=== PATIENT | male | born 1940 | race Caucasian/White ===

== ENCOUNTER 2018-03-18 13:40 | Observation (INO) ==
--- NOTE | 2018-03-18 13:50 | Emergency Department Note ---
Disposition Clinical Impression: Transient global amnesia Hypertension Qualifiers: Hypertension type: unspecified Qualified Code(s): I10 - Essential (primary) hypertension Disposition: Home, Self-Care Condition: Good Instructions: Hypertension (ED) Reasons to Return/Additional Instructions: Please follow-up with her family doctor regarding her blood pressure. If it returns to normal at home, you may not benefit from any treatment of elevated blood pressure. Referrals: Judah Pierre MD [Primary Care Provider] - Time of Disposition: 20:58 General Adult HPI - General Stated complaint: Chest Pain Time Seen by Provider: 03/18/18 13:46 Source: patient, family, EMS Mode of arrival: EMS Limitations: altered mental status - History of Present Illness HPI Narrative: This is a 78-year-old male by EMS because his family came back to see him about 2 hours prior to arrival and found that he appeared confused and did not remember anything that had occurred during the morning. He has no complaints. - Related Data Allergies Allergy/AdvReac Type Severity Reaction Status Date / Time Penicillins [PCN] Allergy Unconscious Verified 03/18/18 13:50 All systems ED: reviewed and negative except as stated. Neurological: Reports: confusion Physical Exam - General Limitations: altered mental status General appearance: alert, in no apparent distress - Head Head exam: atraumatic, normocephalic, normal inspection - Eye Eye exam: Present: normal appearance, PERRL, EOMI. Absent: scleral icterus, conjunctival injection - Chest Chest inspection: Present: normal inspection, symmetric chest wall rise - Respiratory Respiratory exam: Present: normal lung sounds bilaterally - Cardiovascular Cardiovascular exam: Present: regular rate, normal rhythm, normal heart sounds - Abdominal Exam Abdominal exam: Present: soft, Non-Tender. Absent: tenderness, distention, guarding, rebound, rigidity - Extremities Exam Extremities exam: Present: normal inspection, full ROM, pedal edema (1+ bilateral pedal edema just above the malleoli). Absent: tenderness - Neurological Exam Neurological exam: Present: alert, oriented X3, CN II-XII intact, other (Strong and equal bilateral hand instructional design manager, strong and equal L5/S1, no arm or leg drift). Absent: motor sensory deficit - Expanded Neurological Exam Patient oriented to: Present: person, place. Absent: time Speech: Present: fluid speech Cranial nerves: EOM function (II, III, IV, ): Normal, facial sensation (V): Normal, facial palsy (VII): Normal, gag reflex (IX): Normal, spinal accessory function (XI): Normal, tongue deviation (XII): Normal Motor strength - LUE: 5/5 Motor strength - RUE: 5/5 Motor strength - LLE: 5/5 Motor strength - RLE: 5/5 Coma Scale Eye Opening: Spontaneous Coma Scale Motor Response: Obeys Commands Coma Scale Verbal Response: Confused Coma Scale Total: 14 - Psychiatric Psychiatric exam: Present: normal affect, normal mood - Skin Skin exam: Present: warm, dry, intact, normal color Course Course Narrative: This is a 78-year-old male with an and IHSS to concerning for stroke or another metabolic problem causing confusion. Vital Signs Temperature 98.7 F 03/18/18 13:44 Pulse Rate 91 03/18/18 13:44 Respiratory Rate 20 03/18/18 13:44 Blood Pressure 170/101 03/18/18 13:44 O2 Sat by Pulse Oximetry 96 03/18/18 13:44 Temperature 98.7 F 03/18/18 13:44 Pulse Rate 83 03/18/18 20:25 Respiratory Rate 16 03/18/18 19:41 Blood Pressure 175/93 03/18/18 20:25 O2 Sat by Pulse Oximetry 100 03/18/18 19:41 Oxygen Delivery Oxygen Delivery Room Air Medical Decision Making - MDM Narrative Medical decision making narrative: This is a 78-year-old male who appears to have transient global amnesia. Extensive discussion was made between the patient's family in the on-call social insurance specialist. I also discussed his admission with the daytime hospitalist, who responded that we should simply get an MRI of his brain to rule out a stroke because there would be no further benefit to her admitting him to the hospital. This appeared to be correct. I discussed his situation with the evening hospitalist after his MRI resulted in showed no acute process, and no evidence of stroke. The overnight hospitalist told me that he thought the slight troponin elevation could well be secondary to hypertension as was apparent on the patient's vital signs, and that if the repeat troponin was no more elevated, he should be discharged home and follow-up with his family doctor for hypertension treatment. His repeat troponin also returned at 0.04, and he will be discharged home. - Lab Data Lab results reviewed: Yes I reviewed the patient's lab results. Lab results narrative: CBC was unremarkable BMP was unremarkable Troponin was slightly elevated 0.04 UA was unremarkable Repeat troponin was also 0.04 Result diagrams: 03/18/18 14:21 03/18/18 14:21 Lab Results 03/18/18 03/18/18 03/18/18 Range/Units 13:45 14:21 14:21 WBC 7.3 (4.3-11.1) K/mcL RBC 4.29 (4.19-5.50) M/mcL Hgb 14.3 (12.9-16.9) g/dL Hct 41.7 (37.5-50.1) % MCV 97.2 (83.0-100.0) fL MCH 33.3 (28.0-33.3) pg MCHC 34.3 (31.6-35.5) g/dL RDW 11.9 (11.5-14.5) % Plt Count 190 (140-400) K/mcL MPV 9.3 L (9.4-12.4) fL Sodium 140 (136-145) mEq/L Potassium 4.3 (3.5-5.1) mEq/L Chloride 106 (98-107) mEq/L Carbon Dioxide 26 (23-29) mEq/L BUN 19 (8-23) mg/dL Creatinine 0.96 (0.70-1.30) mg/dL Est GFR ( Amer) > 60 (> 60) Est GFR (Non-Af Amer) > 60 (> 60) BUN/Creatinine Ratio 20 (6-26) Glucose 101 (70-105) mg/dL POC Glucose 108 H (70-99) mg/dL Calculated Osmolality 292 (280-300) Calcium 9.5 (8.6-10.3) mg/dL Troponin I 0.04 H* (< 0.04) ng/mL Urine Color (Yellow) Urine Clarity (Clear) Urine pH (5.0-8.0) pH Units Ur Specific [place] (1.010-1.025) Urine Protein (Neg-Trace) mg/dL Urine Glucose (UA) (Normal) mg/dL Urine Ketones (Negative) mg/dL Urine Blood (Negative) Urine Nitrite (Negative) Urine Bilirubin (Negative) Urine Urobilinogen (Normal) mg/dL Ur Leukocyte Esterase (Negative) Urine Microscopic RBC (0-3) per hpf Urine Microscopic WBC (0-3) per hpf Ur Squamous Epith Cells (None-Few) per lpf Urine Bacteria (None-Few) per hpf Hyaline Casts (None-Few) per lpf Ur Culture Indicated? (NO) 03/18/18 03/18/18 Range/Units 14:37 20:15 WBC (4.3-11.1) K/mcL RBC (4.19-5.50) M/mcL Hgb (12.9-16.9) g/dL Hct (37.5-50.1) % MCV (83.0-100.0) fL MCH (28.0-33.3) pg MCHC (31.6-35.5) g/dL RDW (11.5-14.5) % Plt Count (140-400) K/mcL MPV (9.4-12.4) fL Sodium (136-145) mEq/L Potassium (3.5-5.1) mEq/L Chloride (98-107) mEq/L Carbon Dioxide (23-29) mEq/L BUN (8-23) mg/dL Creatinine (0.70-1.30) mg/dL Est GFR ( Amer) (> 60) Est GFR (Non-Af Amer) (> 60) BUN/Creatinine Ratio (6-26) Glucose (70-105) mg/dL POC Glucose (70-99) mg/dL Calculated Osmolality (280-300) Calcium (8.6-10.3) mg/dL Troponin I 0.04 H* (< 0.04) ng/mL Urine Color Yellow (Yellow) Urine Clarity Clear (Clear) Urine pH 6.0 (5.0-8.0) pH Units Ur Specific [place] 1.028 H (1.010-1.025) Urine Protein Negative (Neg-Trace) mg/dL Urine Glucose (UA) Normal (Normal) mg/dL Urine Ketones Negative (Negative) mg/dL Urine Blood Small H (Negative) Urine Nitrite Negative (Negative) Urine Bilirubin Negative (Negative) Urine Urobilinogen Normal (Normal) mg/dL Ur Leukocyte Esterase Negative (Negative) Urine Microscopic RBC 0-3 (0-3) per hpf Urine Microscopic WBC 0-3 (0-3) per hpf Ur Squamous Epith Cells None Seen (None-Few) per lpf Urine Bacteria None Seen (None-Few) per hpf Hyaline Casts None Seen (None-Few) per lpf Ur Culture Indicated? NO (NO) - Radiology Data Radiology results reviewed: Yes I reviewed the patient's radiology results. CT brain showed no acute abnormalities except age-related change MRI brain showed no abnormality - EKG Data EKG #1 EKG attestation: Yes I reviewed and interpreted this EKG. 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
[2018-03-18 14:52] LABS: Hematocrit 41.7 % (37.5-50.1); Hemoglobin 14.3 g/dL (12.9-16.9); Mean Corpuscular HGB Conc 34.3 g/dL (31.6-35.5); Mean Corpuscular Hemoglobin 33.3 pg (28.0-33.3); Mean Corpuscular Volume 97.2 fL (83.0-100.0); Mean Platelet Volume 9.3 fL (9.4-12.4); Platelet Count 190 K/mcL (140-400); Red Blood Count 4.29 M/mcL (4.19-5.50); Red Cell Distribution Width 11.9 % (11.5-14.5)
[2018-03-18 14:53] LABS: Bilirubin,Urine Negative (Negative); Blood,Urine Small (Negative); Clarity,Urine Clear (Clear); Color,Urine Yellow (Yellow); Glucose,Urine (UA) Normal (Normal); Ketones,Urine Negative (Negative); Leukocyte Esterase,Urine Negative (Negative); Nitrite,Urine Negative (Negative); Protein,Urine Negative (Neg-Trace); Specific Gravity,Urine 1.028 (1.010-1.025); Urobilinogen,Urine Normal (Normal)
[2018-03-18 14:58] LABS: Bacteria,Urine None Seen per hpf (None-Few); Hyaline Casts,Urine None Seen per lpf (None-Few); RBC,Urine 0-3 per hpf (0-3); Squamous Epithelial Cell,Urine None Seen per lpf (None-Few); WBC,Urine 0-3 per hpf (0-3)
[2018-03-18 15:12] LABS: BUN/Creatinine Ratio 20 (6-26); Blood Urea Nitrogen 19 mg/dL (8-23); Calcium 9.5 mg/dL (8.6-10.3); Carbon Dioxide 26 mEq/L (23-29); Chloride 106 mEq/L (98-107); Glucose 101 mg/dL (70-105); Osmolality,Calculated 292 (280-300); Potassium 4.3 mEq/L (3.5-5.1); Sodium 140 mEq/L (136-145); eGFR For Non-African Americans > 60 (> 60)
[2018-03-18 15:17] LABS: Troponin I 0.04 ng/mL (< 0.04)
--- NOTE | 2018-03-18 21:37 | Emergency Department Note ---
START Narrative - START START: Initial plan was to discharge the patient. Patient's family was quite upset with the plan to discharge him home. They thought he was too confused to be safe. I discussed this further with social services aide, who recommended he be admitted as a social admit is there was no medical reason to admit him. I discussed the case again with the hospitalist, who agreed to admission.
[2018-03-18] MEDS ORDERED: Naloxone 0.4 MG/ML INJ IVP PRN (23:31)
[2018-03-18] MEDS ORDERED: 0.9 % Sodium Chloride 1,000 ML IVC SCH (23:45)
--- NOTE | 2018-03-19 04:55 | Internal Med History&Physical ---
Date of Encounter: 03/19/18 Time of Encounter: 04:00 Internal Medicine - H&P: HPI Chief complaint: Confusion History of present illness: Mr. Hinson is a 78 year old male with no significant past medical history who presents with confusion. Per family members patient was in his usual state of health earlier this morning. His states that she left the house to go run some errands and when she returned around noon, patient was confused as to recollection of immediate events. Apparently the patient had left the home and returned but could not recall where he had gone. also noted that he was having issues with short-term memory as he kept asking the same question over and over again despite being provided answers a few minutes prior. She states that this is an acute change from his baseline and he has no prior episodes like this before. Patient is not currently on any medication except for supplements including potassium and omega-3 fatty acids among others. He did have his blood pressure checked around this time and did noted to be elevated with a reported systolic blood pressure over 200. He states that his blood pressure normally runs around 110 to 115 systolic. Patient denies any fever, chills, chest pain, shortness of breath, nausea, vomiting, diarrhea. Due to concern for stroke, neurology was consulted and an MRI of the brain was performed which was unremarkable except for chronic small vessel ischemic white matter disease and diffuse cerebral volume loss. Laboratory workup in the ED was relatively unremarkable except for a mild elevation in troponin of 0.04. Neurology's assessment was that this may be due to global transient amnesia. Family did not feel comfortable taking the patient home as they felt he was still symptomatic. Past Med Surg Social Fam HX - Past Medical History Medical history: arthritis, other Additional medical history: left carotid blockage Psychiatric history: no psych history - Social History Smoking Status: Former smoker Alcohol use: none Drug use: none - Family History Mother History Unknown: Yes Hx Family Cardiac Disorders: No Hx Family Respiratory Disorders: No Hx Family Cancer: No Hx Family GI Disorders: No Hx Family Genitourinary Disorders: No Hx Family Endocrine Disorder: No Hx Family Musculoskeletal Disorders: No Father Hx Family Cardiac Disorders: No Hx Family Respiratory Disorders: No Hx Family Cancer: No Hx Family GI Disorders: No Hx Family Genitourinary Disorders: No Hx Family Endocrine Disorder: No Hx Family Musculoskeletal Disorders: No Hx Family Neuromuscular Disorders: No Hx Family Neurologic Disorders: No Hx Family HEENT Disorders: No Hx Family Autoimmune Disorders: No Hx Family Reproductive Disorders: No Hx Family Psychosocial Disorders: No Hx Family Medical Disorders: No Internal Medicine - H&P: Meds Bee Pollen 550 mg PO DAILY 03/18/18 [History] Cholecalciferol (D-3) [Vitamin D] 1,000 unit PO DAILY 03/18/18 [History] Garlic [Daily Garlic Once-A-Day] 400 mg PO DAILY 03/18/18 [History] Lysine [l-Lysine] 500 mg PO DAILY PRN 03/18/18 [History] Magnesium Oxide [Magnesium] 400 mg PO DAILY 03/18/18 [History] Eden-3/Dha/Epa/Fish Oil [Fish Oil 1,000 mg Softgel] 1 cap PO DAILY 03/18/18 [History] Potassium Gluconate [Potassium] 99 mg PO DAILY 03/18/18 [History] Turmeric Root Extract [Turmeric] 500 mg PO DAILY 03/18/18 [History] Allergy/AdvReac Type Severity Reaction Status Date / Time Penicillins [PCN] Allergy Unconscious Verified 03/18/18 13:50 All Systems PM: A 10-system review of systems was performed and is negative for pertinent findings except as documented above in the HPI. - Constitutional Constitutional: no chills, no fever(s), no night sweats - EENT Eyes: no change in vision, no discharge, no pain, no photophobia Ears: no ear discharge, no ear pain, no tinnitus Nose, mouth and throat: no dysphagia, no nasal discharge, no neck pain, no sore throat - Cardiovascular Cardiovascular ROS IM: no chest pain, no diaphoresis, no dyspnea, no lightheadedness, no palpitations, no syncope - Respiratory Respiratory: no cough, no dyspnea, no wheezing, no excessive phlegm production - Gastrointestinal Gastrointestinal: no abdominal pain, no diarrhea, no hematemesis, no hematochezia, no melena, no nausea, no vomiting - Musculoskeletal Musculoskeletal ROS IM: no numbness, no tingling - Integumentary Integumentary IM: no rash, no unusual bruising - Neurological Neurological ROS: no confusion, no convulsions, no focal weakness, no numbness, no tingling, no tremor(s) - Hematologic/Lymphatic Hematologic/Lymphatic: no easy bruising - Constitutional Vitals: Temp Pulse Resp BP Pulse Ox 99.0 F 73 16 173/82 94 03/19/18 00:00 03/19/18 00:00 03/19/18 00:00 03/19/18 00:00 03/19/18 00:00 Exam: General: Alert and oriented 3; lying in bed in no acute distress Skin:Normal color, no rash, no lesions. HEENT:EOM, pupils equal, round and reactive. Cardiovascular:Normal S1 & S2, no rubs, murmurs or gallops. No JVD. Pulse regular. Lungs:Normal breath sounds, no wheezes or crackles. Abdomen:Soft, non-tender, no rigidity. Extremities:No deformity, no edema or tenderness, no joint swelling or clubbing. Neurological:Normal cognition; cranial nerves II through XII intact; no focal deficits; muscle strength 5 out of 5 in the upper and lower extremities Pulses:Carotid and radial pulses normal +2. Rest of the physical exam is non contributory Internal Med - H&P Results - Labs CBC & Chem 7: 03/19/18 05:12 03/19/18 05:12 Labs: Short CBC 03/18/18 Range/Units 14:21 WBC 7.3 (4.3-11.1) K/mcL Hgb 14.3 (12.9-16.9) g/dL Hct 41.7 (37.5-50.1) % Plt Count 190 (140-400) K/mcL BMP 03/18/18 14:21 Sodium 140 Potassium 4.3 Chloride 106 Carbon Dioxide 26 BUN 19 Creatinine 0.96 Glucose 101 Calcium 9.5 Cardiac Enzymes 03/18/18 03/18/18 Range/Units 14:21 20:15 Troponin I 0.04 H* 0.04 H* (< 0.04) ng/mL Urine 03/18/18 Range/Units 14:37 Urine Color Yellow (Yellow) Urine Clarity Clear (Clear) Urine pH 6.0 (5.0-8.0) pH Units Ur Specific [place] 1.028 H (1.010-1.025) Urine Protein Negative (Neg-Trace) mg/dL Urine Glucose (UA) Normal (Normal) mg/dL - Impressions ITS Impressions Head CT 03/18/18 13:47 IMPRESSION: No acute intracranial abnormality. D/ / Ten Perez / Ten Perez Interpreting Provider: Ten Perez Brain MRI 03/18/18 16:09 IMPRESSION: 1. No acute infarct, intracranial hemorrhage, or significant mass effect. 2. Chronic small vessel ischemic white matter disease and diffuse cerebral volume loss. D/ / Anders Cardenas MD / Anders Cardenas MD Interpreting Provider: Anders Cardenas MD - Assessment and plan (1) Confusion Current Visit: Yes Status: Acute Assessment and plan: Acute change in mental status characterized by confusion and short-term memory loss. Patient seems to be returning to baseline. No neurological deficits were appreciated. MRI showed chronic small vessel ischemic changes in the absence of any acute findings concerning for stroke. No evidence at this time of any toxic, metabolic derangements or infectious etiology. Neurology's current as sessment of patient's presentation believed to be secondary to a transient global amnesia. Given patient's reported elevated blood pressure of over 200 systolic at home and elevated blood pressure here in the ED one might consider a hypertensive encephalopathy. We will obtain TSH, vitamin B12 level. We will hold antihypertensive medications for now as blood pressure seems to be trending towards normal. Neurology consult for the morning. (2) Hypertension Current Visit: Yes Status: Acute Assessment and plan: Patient has no prior history of hypertension and is not on any antihypertensive medications. Blood pressure was found to be elevated upon arrival and as high as 196/111. Patient reports that his blood pressure tends to run around 110 to 115 systolic. Blood pressure trending down. We will continue to monitor. Hold off treatment for now. Qualifiers: Hypertension type: unspecified Qualified Code(s): I10 - Essential (primary) hypertension (3) Elevated troponin Current Visit: Yes Status: Acute Assessment and plan: Mildly elevated troponin noted on initial workup. No reports of chest pain. EKG normal. Likely secondary to troponin leak in the setting of elevated blood pressure. We will continue to trend for now. (4) DVT prophylaxis Current Visit: Yes Status: Acute Assessment and plan: Subcutaneous heparin - Time Spent With Patient Total time spent is greater than 50% in coordination of care (as documented) at patient's floor/unit and/or counseling patient:
[2018-03-19 06:05] LABS: Basophils % 0.5 %; Eosinophils # 0.1 K/mcL (0.0-0.6); Eosinophils % 2.3 %; Hematocrit 38.4 % (37.5-50.1); Hemoglobin 13.4 g/dL (12.9-16.9); Immature Granulocytes % 0.4 % (0-4); Lymphocytes # 1.6 K/mcL (0.6-4.6); Lymphocytes % 28.3 %; Mean Corpuscular HGB Conc 34.9 g/dL (31.6-35.5); Mean Corpuscular Hemoglobin 33.3 pg (28.0-33.3); Mean Corpuscular Volume 95.5 fL (83.0-100.0); Mean Platelet Volume 9.5 fL (9.4-12.4); Monocytes # 0.4 K/mcL (0.0-1.3); Monocytes % 7.2 %; Neutrophils # 3.4 K/mcL (1.6-8.9); Platelet Count 181 K/mcL (140-400); Red Blood Count 4.02 M/mcL (4.19-5.50); Red Cell Distribution Width 11.9 % (11.5-14.5); Segmented Neutrophils % 61.3 %
[2018-03-19 06:18] LABS: Alanine Aminotransferase 23 Units/L (7-52); Albumin 4.1 g/dL (3.5-5.7); Albumin/Globulin Ratio 1.8 (1.1-2.2); Alkaline Phosphatase 49 Units/L (34-104); Aspartate Amino Transferase 23 Units/L (13-39); BUN/Creatinine Ratio 17 (6-26); Bilirubin,Total 0.6 mg/dL (0.3-1.0); Blood Urea Nitrogen 14 mg/dL (8-23); Calcium 9.2 mg/dL (8.6-10.3); Carbon Dioxide 24 mEq/L (23-29); Chloride 106 mEq/L (98-107); Chol/HDL Ratio 3.6 (0-4.9); Globulin 2.3 g/dL (2.4-3.5); Glucose 112 mg/dL (70-105); Osmolality,Calculated 287 (280-300); Potassium 3.9 mEq/L (3.5-5.1); Sodium 138 mEq/L (136-145); Total Protein 6.4 g/dL (6.4-8.9); eGFR For Non-African Americans > 60 (> 60)
[2018-03-19] MEDS ORDERED: Aspirin 325 MG TABLET PO ONE (07:30)
[2018-03-19] MEDS: [Fish Oil 1,000 Mg PO SCH (09:11)
[2018-03-19] MEDS: *HR* Heparin 5,000 UNIT/ML VIAL SQ SCH ×3 (09:12→21:44)
[2018-03-19] MEDS: POTASSIUM 99MG PO SCH (09:12)
[2018-03-19] MEDS: Magnesium Oxide 400 MG TABLET PO SCH (09:13)
[2018-03-19] MEDS: Cholecalciferol (D-3) 1,000 UNIT TABLET PO SCH (09:13)
--- NOTE | 2018-03-19 09:15 | Electrocardiograph Report ---
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
--- NOTE | 2018-03-19 11:19 | Neurology - Consult Note ---
<Misael Hernandez - Last Filed: 03/19/18 11:12> Date of Encounter: 03/19/18 Time of Encounter: 11:13 History of Present Illness Chief complaint: Altered mental status HPI: Mr. Hinson is a 78 year old male presents with chief complaint of altered mental status. Yesterday morning patient was at baseline and has no history of confusion, dementia. Patient's went to run errands and upon returning found that he was very confused. In the morning patient had gone to the cemetery as he is working on family [employer]. During the time upon returning h ome patient became confused. Family noticed that he could not answer at first what he did the morning of and Repeating the same questions over and over again. Patient has never had anything like this before. The patient's blood pressure at that time was measured as systolics of 200. Normally patient's blood pressure runs in the 110 systolics. At home patient does not take any medications but is on many supplements including turmeric, vitamin C, vitamin D, fish oil. Patient's head CT and brain MRI are negative. Patient denied blurry vision and headache, slurred speech, weakness, numbness, tingling. She is able to ambulate independently. Past Med Surg Social Fam HX - Past Medical History Medical history: arthritis, other Additional medical history: left carotid blockage Psychiatric history: no psych history - Social History Smoking Status: Former smoker Alcohol use: none Drug use: none - Family History Mother History Unknown: Yes Hx Family Cardiac Disorders: No Hx Family Respiratory Disorders: No Hx Family Cancer: No Hx Family GI Disorders: No Hx Family Genitourinary Disorders: No Hx Family Endocrine Disorder: No Hx Family Musculoskeletal Disorders: No Father Hx Family Cardiac Disorders: No Hx Family Respiratory Disorders: No Hx Family Cancer: No Hx Family GI Disorders: No Hx Family Genitourinary Disorders: No Hx Family Endocrine Disorder: No Hx Family Musculoskeletal Disorders: No Hx Family Neuromuscular Disorders: No Hx Family Neurologic Disorders: No Hx Family HEENT Disorders: No Hx Family Autoimmune Disorders: No Hx Family Reproductive Disorders: No Hx Family Psychosocial Disorders: No Hx Family Medical Disorders: No Medications and Allergies Bee Pollen 550 mg PO DAILY 03/18/18 [History] Cholecalciferol (D-3) [Vitamin D] 1,000 unit PO DAILY 03/18/18 [History] Garlic [Daily Garlic Once-A-Day] 400 mg PO DAILY 03/18/18 [History] Lysine [l-Lysine] 500 mg PO DAILY PRN 03/18/18 [History] Magnesium Oxide [Magnesium] 400 mg PO DAILY 03/18/18 [History] [place]-3/Dha/Epa/Fish Oil [Fish Oil 1,000 mg Softgel] 1 cap PO DAILY 03/18/18 [History] Potassium Gluconate [Potassium] 99 mg PO DAILY 03/18/18 [History] Turmeric Root Extract [Turmeric] 500 mg PO DAILY 03/18/18 [History] Allergy/AdvReac Type Severity Reaction Status Date / Time Penicillins [PCN] Allergy Unconscious Verified 03/18/18 13:50 All Systems: The remainder of the systems were reviewed and are negative Review of Systems: Constitutional: Denies fever, chills HEENT: Denies headache, trauma, blurry vision, eye discharge, ear pain, ear discharge neck pain, sore throat, rhinorrhea Heart: Denies chest pain palpitations, LE edema Lungs: Denies shortness of breath cough Abdomen: Denies abdominal pain nausea vomiting diarrhea MSK: Denies back pain, falls, joint pain Kidney: Denies dysuria, hematuria Skin: Denies rash, ulcers Neuro: Denies numbness and tingling. Reports confusion Psych: denies axniety, depression Physical Examination - Vital Signs Vital Signs: Initial Vital Signs Temp Pulse Resp BP Pulse Ox 98.7 F 91 20 170/101 96 03/18/18 13:44 03/18/18 13:44 03/18/18 13:44 03/18/18 13:44 03/18/18 13:44 - Exam Exam: General: pleasant, without distress HEENT: Head atraumatic, normocephalic, EOMI, PERRL, absent ear discharge or trauma, Moist Mucous Membranes, uvula midline Neck: nontender to palpation, absent lymphadenopathy, Cardiovascualr: Regular rate and rhythm with no murmur, absent gallops or rubs, absent pedal edema, radial pulses 2 out of 4 Lungs: Clear to auscultation bilaterally, not in respiratory distress Abdomen: Soft nontender, nondistended positive bowel sounds, absent hepatomegaly Skin: warm and dry, absent rash, absent open wounds and nodules MSK: absent clubbing, cyanosis, joints without swelling Psych: good insight and judgment - Constitutional General appearance: comfortable - Neurologic Sensorimotor examination: intact Motor examination - right side: 55: deltoids, biceps, triceps, wrist flexion, wrist extension, commercial agent, hip flexors, tibialis Anterior, quadriceps, toe extension (EHL), plantarflexion Motor examination - left side: 55: deltoids, biceps, triceps, wrist flexion, wrist extension, hip flexors, commercial agent, quadriceps, tibialis Anterior, toe extension (EHL), plantarflexion Detailed sensory examination: intact Reflex and gait examination: intact Reflexes: Biceps: 2+, Triceps: 2+, Brachioradialis: 2+, Patella: 2+, Achilles: 2+ Mental Status Examination: awake, alert, oriented to person, oriented to place, oriented to time, follows commands appropriately, answers questions appropriately, no agnosia, no aphasia, no aproxia Cranial nerve examination: PERRL, EOMI, visual ariza intact, sensory to face intact, mastication intact, no facial asymmetry is present, no dysarthria, hearing is intact symmetrically, soft palate elevates bilaterally upon phonation, flexes SCM and trapezius muscles symmetrically with full power, tongue protrudes midline, no atrophy or facial fasiculations present Cerebellar examination: no dysmetria, performs finger to nose and heel to wren symmetrically without ataxia, no gait ataxia, no truncal ataxia, no difficulty with rapid alternating movements Results - Laboratory Findings CBC and BMP: 03/19/18 05:12 03/19/18 05:12 Abnormal lab findings: Abnormal lab results RBC 4.02 M/mcL (4.19-5.50) L 03/19/18 05:12 Glucose 112 mg/dL (70-105) H 03/19/18 05:12 POC Glucose 108 mg/dL (70-99) H 03/18/18 13:45 Globulin 2.3 g/dL (2.4-3.5) L 03/19/18 05:12 Ur Specific [place] 1.028 (1.010-1.025) H 03/18/18 14:37 Urine Blood Small (Negative) H 03/18/18 14:37 Consult Discharge Plan - Plan Referrals: Judah Pierre MD [Primary Care Provider] - <Tino Dang I - Last Filed: 03/19/18 12:18> Assessment and Plan (1) Transient global amnesia Current Visit: Yes Status: Acute Pt was seen and examined, my medical decision was reviewed with the Resident Physician, I agree with the documented findings, disposition and treatment plas as described except to the extent set forth below. This patient was admitted with several hours of altered mental status which she described it as a foggy feeling and he was not able to retain any short-term memory though his working memory was intact and he was able to drive around and able to get back to his home. According to his who has witnessed the whole episode that he was asking the same question over and over again, though he was able to recognize her able to follow some commands but not able to retain any information. He was evaluated in the emergency room lab work was within normal limits he already had an MRI of the brain that did not show any acute infarct except some chronic nonspecific white matter changes His neurological examination is also nonfocal 90 seems to be back to his baseline according to him this morning around 5 in the morning he noticed that that he is back to his baseline though he is still not able to recall much of the events from yesterday and remember bits and pieces of it His clinical symptoms and history seems to be quite typical of TRANSIENT GLOBAL AMNESIA ( TGA) Clinically, it manifests with a paroxysmal, transient loss of memory function. Immediate recall ability is preserved, as is remote memory; however, patients experience loss of memory for short term and recent events and an impaired ability to form any new information. Many patients may become nervous and anxious or agitated, they may ask same q uestions over and over again, thats seem to be he hallfmark of the condition, should not is usually aware of himself able to recognize the family members and the surrounding, working memory and social skills are retained. Symptoms typically last less than 24 hours. As the symptoms resolves, the amn esia improves, but the patient may be left with a distinct lapse of recollection for events during the attack. Generally, TGA is a solitary event, however, patients can experience more than one event with very similar symptoms and recovery. So far no obvious cause has been found there are multiple to ease noted to be more prominent in patient with a history of migraines, seizures but no direct co rrelation these patient usually has stroke workup most of the time is within normal limits as is true in this case As he seemed to be back to his baseline MRI of the brain has been negative Patient could be discharged to home Discussed in detail with the patient and the family , present at the bedside Tino Dang MD History of Present Illness HPI: Mr. Hinson is a 78 year old male All Systems: The remainder of the systems were reviewed and are negative Physical Examination - Vital Signs Vital Signs: Initial Vital Signs Temp Pulse Resp BP Pulse Ox 98.7 F 91 20 170/101 96 03/18/18 13:44 03/18/18 13:44 03/18/18 13:44 03/18/18 13:44 03/18/18 13:44 Results - Laboratory Findings CBC and BMP: 03/19/18 05:12 03/19/18 05:12 Abnormal lab findings: Abnormal lab results RBC 4.02 M/mcL (4.19-5.50) L 03/19/18 05:12 Glucose 112 mg/dL (70-105) H 03/19/18 05:12 POC Glucose 108 mg/dL (70-99) H 03/18/18 13:45 Globulin 2.3 g/dL (2.4-3.5) L 03/19/18 05:12 Ur Specific [place] 1.028 (1.010-1.025) H 03/18/18 14:37 Urine Blood Small (Negative) H 03/18/18 14:37
[2018-03-20] MEDS: *HR* Heparin 5,000 UNIT/ML VIAL SQ SCH (05:28)
[2018-03-20 07:50] VITALS: BP 130/74
[2018-03-20] MEDS: Cholecalciferol (D-3) 1,000 UNIT TABLET PO SCH (08:01)
[2018-03-20] MEDS: Magnesium Oxide 400 MG TABLET PO SCH (08:01)
[2018-03-20] MEDS: POTASSIUM 99MG PO SCH (08:06)
[2018-03-20] MEDS: [Fish Oil 1,000 Mg PO SCH (08:06)
--- NOTE | 2018-03-20 11:07 | Discharge Summary ---
- NOTES TO OUTPATIENT PROVIDER Notes to Outpatient Provider: Mr. Payne is a 78-year-old very pleasant male who entered in through the emergency room from his home, with altered mental status. Past history is negative for any confusion or dementia. He is normally alert oriented and actually has personal pursuits in archaeology and anthropology. 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 His reports that she went to run errands and upon returning found that he was very confused. States that he had been working on [employer] and had went to the cemetery to do some research when she returned home he became confused and kept asking the same questions "over and over". Reported that his blood pressure had been elevated when they took it with a systolic of 200 normal blood pressures for this patient is generally 110 systolics. Patient currently does not take any medications however he does take multiple supplements including fish oil tumor tobacco vitamin C vitamin D. Past medical history is positive for some hypertension, atherosclerosis with known carotid stenosis and plaquing. During his stay here troponins did trend elevated 2 at 0.04 and his last testing became negative at 0.03. CT and MRI of the brain are negative. Dopplers were positive for bilateral stenosis of 60-79% of right and left internal carotids. Patient is currently being seen by Dr. Jackson, cardiovascular surgeon. He will follow up with him on outpatient after discharge and it is recommended that he have repeat carotid Dopplers in 6 months. Neurological consult was completed per Dr. Dang and he was diagnosed with transient global amnesia. Typically teaching A manifest as a proximal transient loss of memory function with immediate recall mobility is preserved as is remote memory however patient experiences loss of memory of short-term and recent events and an impaired ability deformity new information. Today on physical exam the patient is returned to baseline. He denies any chest pain shortness of breath dizziness weakness loss of memory he is alert and oriented 4. Lipitor he independently in the room and he will be discharged home, with a follow-up with Dr. Weiss, as outpatient and recommended repeat carotid Dopplers in 6 months. He is to continue with his home medications as listed. Orders not resulted at time of discharge: none Date of Encounter: 03/20/18 Time of Encounter: 10:54 - Discharge Diagnosis (1) Hypertension Priority: Secondary Status: Chronic Assessment and Plan: Currently takes no medications for his hypertension he is well controlled with an average 6 systolic of 120s and diastolics in the 70s, he is to continue to monitor his blood pressures 3 times weekly Qualifiers: Hypertension type: essential hypertension Qualified Code(s): I10 - Ess ential (primary) hypertension (2) Confusion Priority: Primary Status: Resolved Assessment and Plan: Patient is restored to baseline there are no neurological deficits at this time he is ambulatory independently in the room alert and oriented 4. Family is present at bedside and states that he is at baseline. He is able to complete serial sevens backwards from 100, cranial nerves are intact. TGA appears to be resolved (3) DVT prophylaxis Priority: Primary Status: Acute Assessment and Plan: Subcutaneous heparin (4) Elevated troponin Priority: Primary Status: Resolved Assessment and Plan: Troponins have trended to normal at 0.03. We will have him continue with follow-up with cardiology Hospital course: Mr. Hinson is a 78 year old male Discharge discussed with: patient, family Time spent discussing smoking cessation with patient: more than 10 minutes - Time Spent with Patient Total time spent providing and/or coordinating discharge services: Less than 30 minutes - Discharge Medications Home Medications: Bee Pollen 550 mg PO DAILY 03/18/18 [History] Cholecalciferol (D-3) [Vitamin D] 1,000 unit PO DAILY 03/18/18 [History] Garlic [Daily Garlic Once-A-Day] 400 mg PO DAILY 03/18/18 [History] Lysine [l-Lysine] 500 mg PO DAILY PRN 03/18/18 [History] Magnesium Oxide [Magnesium] 400 mg PO DAILY 03/18/18 [History] [place]-3/Dha/Epa/Fish Oil [Fish Oil 1,000 mg Softgel] 1 cap PO DAILY 03/18/18 [History] Potassium Gluconate [Potassium] 99 mg PO DAILY 03/18/18 [History] Turmeric Root Extract [Turmeric] 500 mg PO DAILY 03/18/18 [History] Allergies/Adverse Reactions: Allergy/AdvReac Type Severity Reaction Status Date / Time Penicillins [PCN] Allergy Unconscious Verified 03/18/18 13:50 Date of admission: 03/18/18 22:10 Primary care physician: Judah Pierre MD Consults: 03/18/18 23:35 Consult to Neurology [CONS] Routine Consulting Provider: [facility] Reason for Consult: Confustion Call Completed: No Discharging clinician: Pita Arguello Anticipated date of discharge: 03/20/18 - Constitutional Vitals: Temp Pulse Resp BP Pulse Ox 97.7 F 63 18 130/74 95 03/20/18 07:47 03/20/18 07:47 03/20/18 07:47 03/20/18 07:47 03/20/18 08:13 General appearance: Present: A&O X 3, morbidly obese, pleasant, no acute distress, answers questions appropriately Exam: Mr. Payne is a 78-year-old very pleasant male who entered in through the emergency room from his home, with altered mental status. Past history is negative for any confusion or dementia. He is normally alert oriented and actually has personal pursuits in archaeology and anthropology. 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 His reports that she went to run errands and upon returning found that he was very confused. States that he had been working on family genealogy and had went to the cemetery to do some research when she returned home he became confused and kept asking the same questions "over and over". Reported that his blood pressure had been elevated when they took it with a systolic of 200 normal blood pressures for this patient is generally 110 systolics. Patient currently does not take any medications however he does take multiple supplements inc luding fish oil tumor tobacco vitamin C vitamin D. Past medical history is positive for some hypertension, atherosclerosis with known carotid stenosis and plaquing. During his stay here troponins did trend elevated 2 at 0.04 and his last testing became negative at 0.03. CT and MRI of the brain are negative. Dopplers were positive for bilateral stenosis of 60-79% of right and left internal carotids. Patient is currently being seen by Dr. Jackson, cardiovascular surgeon. He will follow up with him on outpatient after discharge and it is recommended that he have repeat carotid Dopplers in 6 months. Neurological consult was completed per Dr. Dang and he was diagnosed with transient global amnesia. Typically teaching A manifest as a proximal transient loss of memory function with immediate recall mobility is preserved as is remote memory however patient experiences loss of memory of short-term and recent events and an impaired ability deformity new information. Today on physical exam the patient is returned to baseline. He denies any chest pain shortness of breath dizziness weakness loss of memory he is alert and oriented 4. Lipitor he independently in the room and he will be discharged home, with a follow-up with Dr. Weiss, as outpatient and recommended repeat carotid Dopplers in 6 months. He is to continue with his home medications as listed. - Head Head exam: Present: atraumatic, normocephalic - Eye Eye exam: Present: PERRL, conjuntiva pink, sclera anicteric Pupils: Present: PERRL - Neck Neck exam general surgery: Present: supple, trachea midline. Absent: lymphadenopathy - Respiratory Respiratory exam: Present: CTAB. Absent: accessory muscle use, rales, rhonchi, wheezes - Cardiovascular Cardiovascular exam: Present: RRR, +S1, +S2. Absent: diastolic murmur, gallop, rubs, systolic murmur - GI/Abdominal GI/Abdominal exam: Present: normal bowel sounds, soft, no peritoneal signs. Absent: distended, tenderness - Extremities Exam Extremities exam: Present: warm, radial pulses palpable and symmetrical. Absent: calf tenderness, cyanotic, pedal edema - Neurological Exam Neurological exam: Present: CN II-XII intact, oriented X3, no focal deficits. Absent: pronater drift, facial droop, speech deficit - Skin Skin exam: Present: dry, intact - Patient Status Disposition: Home, Self-Care Condition: Good - Discharge Instructions Instructions: Chronic Hypertension (DC) Follow Up With: Judah Pierre MD [Primary Care Provider] - (Your appointment has been requested. Our offices will call you with an appointment time and date. ) Steven Jackson MD [Partnered Physician] - Forms: ED Satisfaction Letter - Diet and Activity Activity: increase activity as tolerated, resume usual activities as tolerated Diet: low fat, low cholesterol
--- NOTE | 2018-03-20 17:07 | Neurology Progress Note ---
Date of Encounter: 03/20/18 Time of Encounter: 07:40 Assessment and Plan (1) Transient global amnesia Status: Acute Stable back to the baseline no evidence of any stroke on MRI of the brain or on exam Discussed and explained to the family in quite detail Tino Dang MD (2) Carotid stenosis, bilateral Status: Acute Torted duplex shows evidence of bilateral 60-79% carotid stenosis he has been evaluated by vascular surgery in the past. Overall is stable explained to the patient and the family do not think that his recent episode is related to these carotid stenosis for this he need to be on antiplatelet therapy as well as on statin. Suggest may see vascular surgery as an outpatient to discuss further treatment options at this time I do not think that he would require any urgent surgical intervention Patient is not taking any aspirin due to stomach concern I do think that he should be on some antiplatelet therapy explained that activity should be taking [id number] baby aspirin daily but he will discuss more with his primary care and also with vascular surgery Discussed in detail with the family explain all results and also about the diagnosis of TGA Subjective Interval history: Agent is stable doing better did not have any other new symptoms or any other new problems MRI of the brain is been negative carotid duplex did shows evidence of flow bilateral carotid stenosis she has a known history of carotid disease and has been seen by Dr. Jackson in the past Objective - Constitutional Vitals: Temp Pulse Resp BP Pulse Ox 97.7 F 63 18 130/74 95 03/20/18 07:47 03/20/18 07:47 03/20/18 07:47 03/20/18 07:47 03/20/18 08:13 - Neurological Exam Sensorimotor examination: Present: intact Motor examination - left side: 5/5: deltoids, biceps, triceps, wrist flexion, wrist extension, hip flexors, salicylic acid blender, quadriceps, tibialis Anterior, toe extension (EHL), plantarflexion Sensation intact: Present: intact Reflex and gait examination: intact Mental Status Examination: Present: awake, alert, oriented to person, oriented to place, oriented to time, follows commands appropriately, answers questions a ppropriately, no agnosia, no aphasia, no aproxia Cranial nerve examination: Present: PERRL, EOMI, visual ariza intact, sensory to face intact, mastication intact, no facial asymmetry is present, no dysarthria, hearing is intact symmetrically, soft palate elevates bilaterally upon phonation, flexes SCM and trapezius muscles symmetrically with full power, tongue protrudes midline, no atrophy or facial fasiculations present Cerebellar examination: Present: no dysmetria, performs finger to nose and heel to wren symmetrically without ataxia, no gait ataxia, no truncal ataxia, no difficulty with rapid alternating movements Results - Laboratory Findings CBC and BMP: 03/19/18 05:12 03/19/18 05:12 Abnormal lab findings: Abnormal lab results RBC 4.02 M/mcL (4.19-5.50) L 03/19/18 05:12 Glucose 112 mg/dL (70-105) H 03/19/18 05:12 POC Glucose 108 mg/dL (70-99) H 03/18/18 13:45 Globulin 2.3 g/dL (2.4-3.5) L 03/19/18 05:12 Ur Specific [place] 1.028 (1.010-1.025) H 03/18/18 14:37 Urine Blood Small (Negative) H 03/18/18 14:37 Consult Discharge Plan - Plan Instructions: Chronic Hypertension (DC) Referrals: Steven Jackson MD [Partnered Physician] - (Your appointment has been requested. Our offices will call you with an appointment time and date.) Judah Pierre MD [Primary Care Provider] - (Your appointment has been requested. Our offices will call you with an appointment time and date. )
== END 2018-03-20 12:36 | disposition home or self-care (01) ==
LOC: 3BNU 13:40 → EMEROOARM 13:40 → SUATTDRO 22:10 → 3BNU 03-19 00:01
PROVIDERS: ADMIT Internal Medicine; ATTEND Internal Medicine